=== PATIENT | female | born 1990 | race African-American/Black ===

== ENCOUNTER 2017-03-17 11:02 | Observation (INO) | payer MEDICAID ==
[~2017-03-17 11:02] MED LIST: NO HOME MEDICATION XX; PRENATAL CAPLE1 EACH PO; REGLAN10 M2 PO; ZOFRAN ODT4 MG PO; ZOFRAN4 M2 PO
[2017-03-17] MEDS ORDERED: PRENA1 CHEW TA1.4 M1 PO (11:54)
== END 2017-03-17 13:30 ==
LOC: LDR 11:02
PROVIDERS: ADMIT Obstetrics & Gynecology
PROC: 10S0XZZ Reposition Products of Conception, External Approach (ICD-10-PCS; principal; 2017-03-17)
DX: O32.1XX0 Maternal care for breech presentation, not applicable or unspecified (principal); Z3A.37 37 weeks gestation of pregnancy; Z79.899 Other long term (current) drug therapy; Z91.010 Allergy to peanuts; Z98.890 Other specified postprocedural states
CPT/HCPCS: J3105

== ENCOUNTER 2017-04-03 10:08 | Inpatient (IN) | payer MEDICAID ==
[~2017-04-03 10:08] MED LIST changes: +PRENA1 CHEW TA1.4 M1 PO
[2017-04-03 11:41] LABS: HCT-HEMATOCRIT 34.8 % (34.0-49.0); HGB-HEMOGLOBIN 11.6 gm/dl (12.0-15.5); IMMATURE GRANULOCYTES ABSOLUTE 0.05 tho/cmm (0-0.03); IMMATURE GRANULOCYTES PERCENT 0.6 % (0-0.3); LYMPH % 17.1 % (20-45); LYMPH ABSOLUTE COUNT 1.5 tho/cmm (0.8-4.5); MCH (MEAN CORPUSCULAR HGB) 22.7 pg (28.0-32.0); MCHC MEAN CORPUSCULAR HGB CONC 33.3 % (32.0-36.0); MCV (MEAN CELL VOLUME) 68.2 fl (82.0-96.0); MEAN PLATELET VOLUME 8.9 cmc (9.4-12.4); MONO % 3.9 % (0-12); MONOCYTE ABSOLUTE COUNT 0.3 tho/cmm (0.0-1.2); NEUTROPHIL ABSOLUTE COUNT 6.9 tho/cmm (1.6-8.0); NEUTROPHIL-AUTOMATED 6.9 tho/cmm (1.6-8.0); NEUTROPHILS % 78.4 % (40-80); PLATELET COUNT 270 tho/cmm (150-450); WHITE BLOOD COUNT 8.8 tho/cmm (4.0-10.0)
--- NOTE | 2017-04-05 09:30 | NUR ---
DR PONCE ROUNDS ON PT. GRAPE SIZE LUMP NOTED ON UNDERSIDE OF RT BREAST. ? PLUGGED MILK DUCT. ORDER RECEIVED TO INSTRUCT PT ON USING BREAST PUMP EVERY 2 HOURS. MD WILL RE-EVALUATE RT BREAST TOMORROW ON ROUNDS; WILL PLAN U/S OF BREAST IF NOT IMPROVED. NOTIFIED OF PUMP ORDER.
[2017-04-07] MEDS ORDERED: IBUPROFEN800 M1 PO (10:12)
[2017-04-07] MEDS ORDERED: PERCOCET 5-3251 EACH PO (10:13)
== END 2017-04-07 16:45 | DRG 766 ==
LOC: LDR 10:08 → OBGD 13:50
PROVIDERS: ADMIT Obstetrics & Gynecology
PROC: 10D00Z1 Extraction of Products of Conception, Low, Open Approach (ICD-10-PCS; principal; 2017-04-03)
DX: O32.1XX0 Maternal care for breech presentation, not applicable or unspecified (principal); O24.410 Gestational diabetes mellitus in pregnancy, diet controlled; Z3A.39 39 weeks gestation of pregnancy; Z37.0 Single live birth; O92.29 Other disorders of breast associated with pregnancy and the puerperium
CPT/HCPCS: J0690; J2590; J7121